=== PATIENT | female | born 1980 | race Caucasian/White ===

== ENCOUNTER 2019-01-30 19:45 | Emergency (ER) | payer MEDICAID ==
[~2019-01-30] VITALS: Ht 170.2 cm; Wt 59.9 kg
[2019-01-30 19:48] VITALS: Ht 170.2 cm; Wt 59.9 kg
[2019-01-30 22:57] VITALS: BP 102/57
== END 2019-01-30 22:57 | disposition home or self-care (01) ==
LOC: ED 19:45
DX: M94.0 Chondrocostal junction syndrome [Tietze] (principal)
CPT/HCPCS: J1885; Q0092